=== PATIENT | male | born 1975 | race Caucasian/White ===

== ENCOUNTER 2017-07-05 06:50 | Day surgery (SDC) | payer OTHER ==
[~2017-07-05] VITALS: Ht 188 cm; Wt 106.6 kg
[~2017-07-05 06:50] MED LIST: BACTRIM DS TAB1 EACH PO; FLAGYL500 MG PO; IMITREX25 MG PO; NORCO 5-325 TA1 EACH PO; ROBAXIN500 MG PO; ZOMIG5 MG PO; [UNRECOGNIZED DRUG - OTHER] PO
[2017-07-05] MEDS ORDERED: IBUPROFEN IB200 MG PO (07:22)
--- NOTE | 2017-07-05 09:30 | NUR ---
07/05/17 0930 [place] 0920-PATIENT ARRIVED TO PACU ON 9L MASK O2 SAT 100% PATIENT REACTIVE TO VOICE OPENS EYES, ABLE TO WIGGLE FINGERS DENIES PAIN OR NAUSEA. IMMOBILIZER IN PLACE. GOOD CAP REFILL, WARMTH AND PULSE TO RIGHT ARM. 2 SITES TO SHOULDER CDI ICE APPLIED. 0930-PATIENT AWAKE DENIES PAIN OR NAUSEA. WEANED TO 6L MASK O2 SAT 100%
--- NOTE | 2017-07-05 09:57 | NUR ---
ICED WATER GIVEN. CALL LIGHT W/IN REACH.
[2017-07-05] MEDS ORDERED: NORCO 10-325 T1 EACH PO (10:18)
--- NOTE | 2017-07-05 11:01 | NUR ---
PT UP TO BR W/RN STANDBY. PT AMBULATES WELL AND DENIES DIZZINESS. PT REPORTS SUCCESSFUL VOID AND IS BACK IN BED. WAITING ON PT'S RIDE - HE WAS NOTIFIED BY TELEPHONE PT WAS READY.
--- NOTE | 2017-07-05 11:45 | NUR ---
LE 1130: VERBAL DC INSTRUCTIONS GIVEN IN PRESENCE OF FRIEND AND BOTH VERBALIZE UNDERSTANDING. PT TRANSFERS SELF WELL TO WC AND PERSONAL VEHICILE.
--- NOTE | 2017-07-10 07:08 | OR ---
[facility] [address], [place] [address] Signed DATE OF PROCEDURE: 07/05/17 PREOPERATIVE DIAGNOSIS: Labral tear, right shoulder. POSTOPERATIVE DIAGNOSIS: Labral tear, right shoulder. PROCEDURE: Right shoulder arthroscopy with debridement of the labral tear. SURGEON: William Blanchard MD ANESTHESIA: General. SPECIMENS: None. COMPLICATIONS: None. TOURNIQUET: Not used. BLOOD LOSS: Minimal. PROCEDURE The patient was taken to the operating room. After anesthesia was induced and the airway secured, the patient was placed in the modified beach chair position. He was then prepped and draped in a routine sterile fashion. The bony topography of the right shoulder was outlined with a skin marking pen, and the arthroscope was inserted through the standard posterior portal. Arthroscopic evaluation of the shoulder joint revealed an unremarkable glenoid and an unremarkable humeral head. The rotator cuff was intact as was the biceps tendon and the biceps anchor. There appeared to be essentially a bucket-handle tear of the anterior-inferior overall labrum beginning at about 3 o'clock and going d own to about 6 o'clock. This appeared to be significantly shredded and it was not amenable to repair. We made an anterior portal using a switching stick technique and introduced a basket forceps. The tear was completed at the 3 o'clock position and then down at the 6 o'clock position and the fragment was delivered out of the shoulder joint. We then introduced a 3.5 mm shaver from the anterior portal and gently trimmed the edges of the resection. We then switched the scope to the anterior portal, introduced the motorized shaver through the posterior portal and finished the trimming. There was also some fraying of the posterosuperior labrum from about 10 o'clock to the 12 o'clock position, but again the biceps anchor was intact. We used the motorized shaver to gently trim this frayed portions of the posterosuperior labrum. The shoulder was then copiously irrigated and drained. The portals closed. Sterile dressings applied. The patient was placed in a shoulder immobilizer, awakened, taken to the recovery room, where arrived in stable condition. Counts were correct and antibiotic protocols were Electronically Signed By: WILLIAM BLANCHARD MD 07/10/17 0708 PATIENT NAME: MAHESH ORTIZ OPERATIVE REPORT DATE OF : 73 PHYSICIAN: WILLIAM BLANCHARD MD REPORT #: [id number] REPORT IS CONFIDENTIAL AND NOT TO BE RELEASED WITHOUT AUTHORIZATION [address] [address] Signed followed. William Blanchard MD WFB/Modl /[id number] cc: You Lewis DO Electronically Signed By: WILLIAM BLANCHARD MD 07/10/17 0708 PATIENT NAME: MAHESH ORTIZ OPERATIVE REPORT DATE OF : 73 PHYSICIAN: WILLIAM BLANCHARD MD REPORT #: [id number] REPORT IS CONFIDENTIAL AND NOT TO BE RELEASED WITHOUT AUTHORIZATION
== END 2017-07-05 11:35 | disposition home or self-care (01) ==
LOC: OPS 06:50 → DS 06:50 → OPS 08:15
PROVIDERS: Orthopaedic Surgery
PROC: 0RBJ4ZZ Excision of Right Shoulder Joint, Percutaneous Endoscopic Approach (ICD-10-PCS; principal; 2017-07-05 08:15)
DX: S43.491A Other sprain of right shoulder joint, initial encounter (principal); G89.29 Other chronic pain; R51 Headache
CPT/HCPCS: 01630; 64415; 76942; J0690; J0735; J1100; J1885; J2250; J2405; J2704; J2765; J3010; J7120

== ENCOUNTER 2018-03-15 05:56 | Emergency (ER) | payer OTHER ==
[~2018-03-15] VITALS: Ht 188 cm; Wt 106.6 kg
[~2018-03-15 05:56] MED LIST changes: +IBUPROFEN IB200 MG PO; +NORCO 10-325 T1 EACH PO
[2018-03-15] MEDS ORDERED: TRAZODONE HCL50 MG PO (06:06)
--- NOTE | 2018-04-03 09:46 | DIAG ---
[facility] [address] [place] [address] Signed DATE OF STUDY: 03/15/2018 HOLTER MONITOR SUMMARY REPORT: This is a 48-hour Holter monitor with 44 minutes of artifact, total beats recorded 231,934. The patient was predominantly in sinus rhythm with average heart rate of 80 beats per minute. Maximum heart rate 120 beats per minute and minimum heart rate 51 beats per minute. Arrhythmia was noted as rare premature atrial contractions and occasional premature ventricular contractions, however, total burden of 1.54% only. CONCLUSION: 1. A 48-hour Holter monitor with total of 231,934 beats recorded. 2. The patient was predominantly in sinus rhythm. 3. Average heart rate 80 beats per minute, minimum heart rate 51 beats per minute, and maximum heart rate 122 beats per minute. 4. Arrhythmia was noted as rare premature atrial contractions and occasional premature ventricular contraction, however, low clinical burden of 1.54%. [facility] MD MIGUEL ANGEL Cook/TAHIR /[id number] CC: Marlene Parks PA-C Copies: ~ PATIENT NAME: MAHESH ORTIZ DIAGNOSTIC STUDY DATE OF : 73 REPORT #: [id number] PHYSICIAN: STACIE COOK MD PCP: OTHER PCP REPORT IS CONFIDENTIAL AND NOT TO BE RELEASED WITHOUT AUTHORIZATION
== END 2018-03-15 06:57 | disposition home or self-care (01) ==
LOC: ED 05:56
DX: R00.2 Palpitations (principal); Z79.899 Other long term (current) drug therapy
CPT/HCPCS: 93225; 93226; 93227; 99283